=== PATIENT | male | born 1955 | race Caucasian/White ===

== ENCOUNTER → 2016-10-30 | Outpatient (CLI) | payer BC | END | disposition home or self-care (01) | LOC: GMAJ 10:15 | PROVIDERS: ATTEND Family Medicine | DX: R06.02 Shortness of breath (principal); Z12.5 Encounter for screening for malignant neoplasm of prostate ==

== ENCOUNTER 2017-09-03 04:55 | Emergency (ER) | payer BC ==
[2017-09-03] MEDS ORDERED: NITROGLYCERIN 0.4 MG 25 EA TAB SL ONE (05:22)
[2017-09-03] MEDS ORDERED: ALUM & MAG HYDROX-SIMETHICONE 30 ML, LIDOCAINE VISCOUS 2% 15 ML PO ONE ×2 (05:32)
[2017-09-03] MEDS ORDERED: ASPIRIN TABLET 325 MG TAB PO ONE (05:32)
[2017-09-03] MEDS ORDERED: LIDOCAINE HCL 2% (MOUTH-THROAT) 15 ML UD ONE (05:36)
[2017-09-03] MEDS ORDERED: ALUM & MAG HYDROX-SIMETHICONE 30 ML UD ONE (05:37)
--- NOTE | 2017-09-03 05:43 | ED.PDOC ---
History of Present Illness - General Chief Complaint: Chest Pain/IA Stated Complaint: chest pain Time Seen by Provider: 09/03/17 05:18 Source: patient Exam Limitations: no limitations - History of Present Illness Initial Comments: The patient is a 62-year-old male presenting to the emergency room secondary to chest pain that has been substernal and intermittent over the last month. Pain has been associated with numbness in the left shoulder. He had an episode last night that lasted for approximately 20 minutes until he took his nitroglycerin after which it resolved. Chest pain resumed around 3 AM this morning when he had an episode of vomiting. Chest pain has been fairly persistent since that time. At its worst it rates around 7 and it is currently around 3 on the pain scale. He has had nausea with some of the other episodes. He does take medications that are quite irritating to the intestinal tract such as metformin, brillinta and Celebrex. 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 He has had a few cardiac stents placed a couple of years ago. He reports being compliant with his medications. There is nothing that he can do to make the chest pain, on or go away except for the nitroglycerin. He took 3 nitroglycerin before coming up. The chest pain did not go away but did get a little bit better. He did not pass out. No feelings of palpitations. Mild shortness of breath with the episodes. Most of the episodes have occurred at night. He has had 5 or 6 episodes in the last month but all until this point have responded to nitroglycerin. Timing/Duration: 1-3 hours Severity: moderate Improving Factors: nothing Worsening Factors: nothing Associated Symptoms: chest pain, diaphoresis, malaise, nausea/vomiting Allergies/Adverse Reactions: Allergies Penicillins Allergy (Verified 08/26/15 08:56) Rash Home Medications: Ambulatory Orders Aspirin [Aspirin EC] 81 mg PO DAILY 08/26/15 Metformin HCl [Metformin HCl ER] 500 mg PO DAILY 08/26/15 Nitroglycerin [Nitrostat] 0.4 mg SL Q5MIN PRN 08/26/15 Ticagrelor [Brilinta] 90 mg PO DAILY 08/26/15 Atorvastatin Calcium [Lipitor] 20 mg PO 09/03/17 Metoprolol Succinate [Metoprolol Succinate ER] 50 mg PO 09/03/17 Review of Systems - Review of Systems Constitutional: States: malaise EENTM: States: no symptoms reported Respiratory: States: short of breath - mild, but only associated with the chest pain not with any exertion or position. Cardiology: States: chest pain. Denies: edema, palpitations, syncope Gastrointestinal/Abdominal: States: nausea, vomiting. Denies: constipation, diarrhea Genitourinary: States: no symptoms reported Musculoskeletal: States: no symptoms reported Skin: States: no symptoms reported Neurological: States: anxiety Endocrine: States: no symptoms reported All other Systems: No Change from Baseline Past Medical History (General) - Patient Medical History Hx Cardiac Disorders: Yes - Cardiac stents, [place] [facility] Cholesterol Hx Hypertension: Yes Hx Diabetes: Yes Surgical History: cholecystectomy - Vaccination History Hx Influenza Vaccination: No Hx Pneumococcal Vaccination: Yes - Social History Hx Tobacco Use: No Hx Alcohol Use: No - Triage Comment ED Triage Comment: onset of chest pain, last night around 9pm. Rates pain at 3 presently. Family Medical History - Family History Mother Living Status: Physical Exam - Physical Exam General Appearance: Alert, Anxious, No apparent distress Eye Exam: bilateral normal Ears, Nose, Throat: hearing grossly normal, normal ENT inspection, normal pharynx Neck: non-tender, full range of motion, supple Respiratory: chest non-tender, lungs clear, normal breath sounds, no respiratory distress, no accessory muscle use Cardiovascular/Chest: normal peripheral pulses, regular rate, rhythm, no edema Peripheral Pulses: radial,right: 2+, radial,left: 2+, dorsalis pedis,right: 2+, dorsalis pedis,left: 2+ Gastrointestinal/Abdominal: non tender - e does have an umbilical hernia that is not incarcerated. No pain. He does have mild epigastric discomfort palpation., soft Rectal Exam: deferred Back Exam: normal inspection, no CVA tenderness Extremity: normal range of motion, non-tender, normal inspection, no pedal edema , normal capillary refill Neurologic: money examiner II-XII nml as tested, alert, normal mood/affect - he is appropriately anxious, oriented x 3 Skin Exam: normal color Comments: Vital Signs - 24 hr 09/03/17 09/03/17 09/03/17 05:02 05:07 05:23 Pulse Rate [ 60 64 58 L Apical] Respiratory 16 18 Rate Blood Pressure 152/81 132/75 [Left Arm] O2 Sat by Pulse 98 99 Oximetry Progress - Progress Progress: 09/03/17 06:29 the patient is a 62-year-old male presenting to the emergency room with fairly convincing chest pain of a couple of hours duration that failed to resolve with 3 nitroglycerin. He has been having an increasing frequency of chest pain over the last month but all have resolved with nitroglycerin. He does have a history of significant stents placed approximately 2 years ago in [place]. [facility] is on divert. The patient is going to be transferred to [facility] and Dr. Angelo has been contacted. The patient is going to be placed on IV nitroglycerin, IV heparin. He has already received aspirin and a dose of morphine. GI cocktail failed to make any improvement whatsoever. He will be made nothing by mouth. Initial EKG does have some abnormalities but they may be long-term. Lab work otherwise at this time is reassuring. the patient does need a dose of his morning Brillinta upon arrival at the receiving facility. This medication is not on our formulary and Dr. Angelo did wish for him to have a dose this morning. 09/03/17 06:31 - Results/Orders Results/Orders: EKG shows normal sinus rhythm. There is poor R-wave progression in anterior leads. Normal axis. T-wave inversion in lead 3. Otherwise no significant ST segment changes concerning for imminent ischemia. chest x-ray shows no acute cardiopulmonary pathology. Laboratory Tests 09/03/17 05:05 WBC 10.5 RBC 4.69 L Hgb 14.3 Hct 43.3 MCV 92.3 MCH 30.4 MCHC 33.1 RDW 14.1 Plt Count 209 MPV 8.3 Absolute Neuts (auto) 6.00 Absolute Lymphs (auto) 2.90 Absolute Monos (auto) 1.30 H Absolute Eos (auto) 0.30 Absolute Basos (auto) 0.10 Neutrophils % 56.7 Lymphocytes % 27.2 Monocytes % 12.3 H Eosinophils % 3.3 Basophils % 0.5 PT 11.1 INR 0.980 PTT (SP) 30.9 Sodium 138 Potassium 4.2 Chloride 106 Carbon Dioxide 25 Anion Gap 11.2 L BUN 25 H Creatinine 1.39 H BUN/Creatinine Ratio 18.0 Random Glucose 142 H Serum Osmolality 282.5 Calcium 9.1 Magnesium 1.7 L Creatine Kinase 53 CK-MB (CK-2) 1.4 CK-MB (CK-2) % Not Reportable Troponin I 0.04 Departure - Departure Clinical Impression: Unstable angina Disposition: Transfer to Hospital Referrals: Stevie Garcia MD [Primary Care Provider] - 1-2 Weeks Home Medications: Ambulatory Orders Aspirin [Aspirin EC] 81 mg PO DAILY 08/26/15 Metformin HCl [Metformin HCl ER] 500 mg PO DAILY 08/26/15 Nitroglycerin [Nitrostat] 0.4 mg SL Q5MIN PRN 08/26/15 Ticagrelor [Brilinta] 90 mg PO DAILY 08/26/15 Atorvastatin Calcium [Lipitor] 20 mg PO 09/03/17 Metoprolol Succinate [Metoprolol Succinate ER] 50 mg PO 09/03/17 Transfer to Outside Facility - Transfer Information Accepting Provider:: dr rausch/janis [facility] Reason for Transfer: required specialist not available
--- NOTE | 2017-09-03 05:44 | RAD ---
EXAM: Single view chest. INDICATION: Chest pain. COMPARISON: Chest x-ray: 08/10/2010. FINDINGS: Cardiac silhouette: Unremarkable. Brooke: Unremarkable. Lobar consolidation: None. Pleural effusion: None. Pneumothorax: None. Other: None. Bones: There are postsurgical changes to the left clavicle Other: None. IMPRESSION: 1. No acute cardiopulmonary process. Electronically signed by: Chicho Villalpando MD 09/03/2017 5:42 AM [facility] Workstation: [id number]
[2017-09-03] MEDS ORDERED: MAGNESIUM SULFATE PREMIX 2GM 2 GM in PREMIX BAG 1 BAG IVPB ONE (05:47)
[2017-09-03] MEDS ORDERED: PANTOPRAZOLE SODIUM IV 40 MG VIAL IV ONE (05:47)
[2017-09-03] MEDS ORDERED: SODIUM CHLORIDE 0.9% 1000ML 500 ML IVS ONE (05:47)
[2017-09-03] MEDS ORDERED: MAGNESIUM SULFATE PREMIX 2GM 50 ML IVPB ONE (05:53)
[2017-09-03] MEDS ORDERED: NITROGLYCERIN 2% 1 GM UD TOP ONE (06:06)
[2017-09-03] MEDS ORDERED: MORPHINE SULFATE INJ 10 MG/ML VIAL IV ONE (06:09)
[2017-09-03] MEDS ORDERED: HEPARIN SODIUM (PORCINE) 5,000 U/ML VIAL IV ONE (06:11)
[2017-09-03] MEDS ORDERED: HEPARIN PREMIX 25,000 UNITS in PREMIX BAG 1 BAG IVS SCH (06:15)
[2017-09-03] MEDS ORDERED: NITROGLYCERIN/D5W IV 50,000 MCG in PREMIX BOTTLE 1 BOTTLE IVS SCH (06:30)
[2017-09-03] MEDS ORDERED: HEPARIN PREMIX 500 ML ONE (06:42)
[2017-09-03] MEDS ORDERED: NITROGLYCERIN/D5W IV 250 ML IVS ONE (06:43)
[2017-09-03 07:02] VITALS: BP 138/77; TEMP 98.5; O2SAT 95
== END 2017-09-03 07:19 | disposition short-term general hospital (02) ==
LOC: ER 04:55
DX: I20.0 Unstable angina (principal); I10 Essential (primary) hypertension; I25.2 Old myocardial infarction; E11.9 Type 2 diabetes mellitus without complications; E78.00 Pure hypercholesterolemia, unspecified; Z98.61 Coronary angioplasty status; Z88.0 Allergy status to penicillin; Z79.82 Long term (current) use of aspirin
CPT/HCPCS: 36415; 71045; 80048; 82550; 82553; 84484; 85025; 85610; 85730; 93005; J1644; J2270; J3475; J7030

== ENCOUNTER 2018-01-01 10:36 | Inpatient (IN) | payer BC ==
--- NOTE | 2018-01-01 11:18 | CT ---
Study: CT abdomen and pelvis. Indication: pain Technique: CT of the abdomen and pelvis obtained without intravenous contrast. This exam was performed according to our departmental dose-optimization program, which includes automated exposure control, adjustment of the mA and/or kV according to patient size and/or use of iterative reconstruction technique. Comparison: None. Findings: Lung bases clear. Coronary artery and abdominal aortic atherosclerosis. Cholecystectomy clips. Liver, spleen, adrenal glands, bladder, and prostate gland demonstrate a normal unenhanced CT appearance. Multiple coarse calcifications within the pancreas indicating chronic pancreatitis. Moderate right renal atrophy and cortical scarring with a 5.5 mm linear central nonobstructing right renal calculus. Within the proximal left ureter at the L3 vertebral body level there is an obstructing 3.5 mm stone moderate left hydronephrosis, renal enlargement, and perinephric stranding. Colonic diverticulosis without diverticulitis. Prominent umbilical hernia with a fascial defect measuring 6 cm transverse by 5 cm craniocaudal. There is herniated omentum as well as portions of the transverse colon and small bowel. No obstruction. Appendix not visualized. Tiny hiatal hernia. No free fluid. No free air. No pathologically enlarged lymphadenopathy. No acute osseous abnormality. Impression: Obstructing 3.5 mm stone within the proximal left ureter with moderate left hydronephrosis. Anterior abdominal wall hernia with herniated small bowel and transverse colon. No obstruction. Additional findings as above. Electronically signed by: Shad Hyatt MD 01/01/2018 11:16 AM CDT
[2018-01-01] MEDS ORDERED: ONDANSETRON INJ 4 MG/2 ML VIAL IV ONE (11:26)
[2018-01-01] MEDS ORDERED: MORPHINE SULFATE INJ 10 MG/ML VIAL IV ONE (11:26)
[2018-01-01] MEDS ORDERED: SODIUM CHLORIDE 0.9% 1000ML 1,000 ML IVS ONE ×2 (11:26→13:09)
--- NOTE | 2018-01-01 11:28 | ED.PDOC ---
History of Present Illness - General Chief Complaint: Problem Stated Complaint: lumbar back pain Time Seen by Provider: 01/01/18 11:01 Source: patient Exam Limitations: no limitations - History of Present Illness Initial Comments: H/O KIDNEY STONES. YESTERDAY, ENSUED WITH LBP, EMESIS, NAUSEA. FEELS SIMILAR TO KIDNEY STONE 1 YR AGO. DENIES URINARY SX OTHER THAN MILD DYSURIA. Timing/Duration: constant Severity: severe Improving Factors: nothing Worsening Factors: nothing Associated Symptoms: denies symptoms Allergies/Adverse Reactions: Allergies Penicillins Allergy (Verified 01/01/18 10:49) Rash Home Medications: Ambulatory Orders Aspirin [Aspirin EC] 81 mg PO DAILY 08/26/15 Metformin HCl [Metformin HCl ER] 500 mg PO DAILY 08/26/15 Nitroglycerin [Nitrostat] 0.4 mg SL Q5MIN PRN 08/26/15 Ticagrelor [Brilinta] 90 mg PO DAILY 08/26/15 Atorvastatin Calcium [Lipitor] 20 mg PO 09/03/17 Metoprolol Succinate [Metoprolol Succinate ER] 50 mg PO 09/03/17 Review of Systems - Review of Systems Constitutional: Denies: chills, fever EENTM: States: no symptoms reported Respiratory: States: no symptoms reported Cardiology: States: no symptoms reported Gastrointestinal/Abdominal: States: nausea. Denies: abdominal pain, vomiting Genitourinary: States: dysuria - mild. Denies: frequency, hematuria Musculoskeletal: States: back pain. Denies: muscle pain Skin: States: no symptoms reported Neurological: States: no symptoms reported Endocrine: States: no symptoms reported Hematologic/Lymphatic: States: no symptoms reported All other Systems: Reviewed and Negative Past Medical History (General) - Patient Medical History Hx Cardiac Disorders: Yes - Cardiac stents, [place] [facility] Cholesterol Hx Hypertension: Yes Hx Diabetes: Yes Surgical History: cholecystectomy, other - Vaccination History Hx Influenza Vaccination: No Hx Pneumococcal Vaccination: Yes - Social History Hx Tobacco Use: No Hx Alcohol Use: Yes - occasional Hx Substance Use: No Family Medical History - Family History Mother Living Status: Physical Exam - Physical Exam General Appearance: Alert, Well Nourished Ears, Nose, Throat: hearing grossly normal, normal ENT inspection Neck: full range of motion, normal inspection Respiratory: lungs clear, normal breath sounds, no respiratory distress Cardiovascular/Chest: regular rate, rhythm, no murmur Peripheral Pulses: radial,right: 1+, radial,left: 1+ Gastrointestinal/Abdominal: normal bowel sounds, non tender, soft Back Exam: normal inspection, no CVA tenderness Extremity: normal range of motion, normal inspection Neurologic: alert, normal mood/affect Skin Exam: normal color, warm/dry Lymphatic: no adenopathy Progress - Progress Progress: 01/01/18 13:45 R OBSTRUCTING NEPHROLITHIASIS 3.5 MM, WBC 13.5, ARF (CR 2.7, WAS 1.39 4 MOS AGO) . GAVE BOLUS X 2, ZOFRAN, MORPHINE, THEN DILAUDID. ROCEPHIN FOR UTI (PT NOT ALLERGIC TO ROCEPHIN). FLOMAX X 1. I SPOKE WITH SHREYAS, HOSPITALIST TECHNOLOGY LEAD. HE RECOMMENDED I INQUIRE WITH UROLOGY TO ENSURE IT IS NOT ONE THEY WOULD STENT. I SPOKE WITH DR. MADDOX, URO WHOM PT HAD SEEN 1 YR AGO. HE STATED NO NEED FOR TRANSFER THIS IS NOT NEEDING A STENT. HE STATED PAST STONE WAS URIC ACID AND RECOMMENDS PT TAKE POTASSIUM CITRATE OTC SUPPLEMENT. I PASSED ON THIS INFORMATION TO THE PT. PT NEEDING OBS ADMISSION SINCE HE IS REQUIRING IV PAIN MEDICATION TO CONTROL HIS PAIN. HE ALSO HAS ARF NEEDING IV FLUID MANAGEMENT AND ABX FOR UTI. THANK YOU, SHREYAS AND [facility], FOR ACCEPTING FURTHER CARE OF THIS PATIENT! Departure - Departure Clinical Impression: Urinary tract infection, Left nephrolithiasis, Hydronephrosis of left kidney, Neutrophilic leukocytosis, Microscopic hematuria, Bacteriuria, Acute renal failure Disposition: Admit Patient Condition: Fair Diet: resume usual diet Activity: increase activity as tolerated Home Medications: Ambulatory Orders Aspirin [Aspirin EC] 81 mg PO DAILY 08/26/15 Metformin HCl [Metformin HCl ER] 500 mg PO DAILY 08/26/15 Nitroglycerin [Nitrostat] 0.4 mg SL Q5MIN PRN 08/26/15 Ticagrelor [Brilinta] 90 mg PO DAILY 08/26/15 Atorvastatin Calcium [Lipitor] 20 mg PO 09/03/17 Metoprolol Succinate [Metoprolol Succinate ER] 50 mg PO 09/03/17 Additional Instructions: Please start taking a daily potassium citrate supplement. You had uric acid stones in the past and this can help prevent future formation of the stones. You will find this in the vitamin section of a grocery or supplement store. Decision To Admit - Decistion To Admit Decision to Admit Reason: Admit from ER Decision to Admit Date: 01/01/18 Decision to Admit Time: 13:55
[2018-01-01] MEDS ORDERED: cefTRIAXone SODIUM 1 GM in SODIUM CHL 0.9% 50ML MIN-BAG+ 50 ML IVPB ONE (11:57)
[2018-01-01] MEDS ORDERED: SODIUM CHL 0.9% 50ML MIN-BAG+ 50 ML IVPB ONE ×2 (12:00→19:04)
[2018-01-01] MEDS ORDERED: cefTRIAXone SODIUM 1 GM VIAL ONE ×2 (12:00→19:04)
[2018-01-01] MEDS ORDERED: HYDROmorphone HCL INJ 2 MG/ML VIAL IV ONE (12:33)
[2018-01-01] MEDS ORDERED: TAMSULOSIN 0.4 MG CAP PO ONE (13:39)
--- NOTE | 2018-01-01 14:04 | HP ---
SUPERVISING PHYSICIAN: Stevie Garcia MD CHIEF COMPLAINT: Left sided lumbar back pain. HISTORY OF PRESENT ILLNESS: This is a 62-year-old male patient who came into the Emergency Room with some lower back pain, mainly on the left side which he suspected was a kidney stone as he has had several of these in the past. This was associated with nausea and vomiting. He had some very minimal dysuria, but no difficulty urinating. When he came into the Emergency Room, his workup included labs as well as CT of the abdomen and pelvis. His CT revealed a left sided 3.5 mm proximal ureteral stone which was causing an obstruction with a resulting moderate hydronephrosis. He had some leukocytosis of 13,000 and elevated creatinine of 2.7. I was called by the Emergency Room physician for admission. I did ask for them to call the patient's urologist, Dr. Rivera, who he has seen in the past to ensure that he did not want to perform any intervention. He stated the patient would not need any intervention and that he could go home and take potassium citrate and let the stone pass. However, the patient's pain was uncontrolled and he was requiring IV pain medication, so he was referred for observation. I have now placed the patient in the Medical/ Surgical Unit for observation. At time of examination, the patient is more comfortable than what was described over the phone, however, he has gotten Dilaudid. He states he feels like the pain is coming back. He got a dose of Rocephin in the Emergency Room and cultures have been sent as well. PAST MEDICAL HISTORY: 1. Coronary artery disease with myocardial infarction in the past. He has had three stents, the last one in August of this year. 2. Hypertension. 3. Hyperlipidemia. 4. Diabetes mellitus, type 2. 5. History of kidney stones in the past. 6. History of anterior abdominal wall hernia. PAST SURGICAL HISTORY: 1. Cholecystectomy. 2. PTCA with stents times 3, most recently in 2018. 3. Left clavicle repair. CURRENT MEDICATIONS: 1. Aspirin 81 mg p.o. daily. 2. Atorvastatin 40 mg p.o. daily. 3. Metformin 500 mg p.o. b.i.d. 4. Metoprolol 25 mg p.o. daily. 5. Nitroglycerin 0.4 mg sublingual q.5 minutes p.r.n. for chest pain. 6. Brilinta 90 mg p.o. b.i.d. ALLERGIES: PENICILLIN. FAMILY HISTORY: Father had type 2 diabetes. Mother had asthma and hypertension. SOCIAL HISTORY: The patient is a previous smoker, quit around 2003. He smoked pretty heavily up until that point. He also is exposed to secondhand smoke from his . He is a nondrinker and no illicit drugs. REVIEW OF SYSTEMS: CONSTITUTIONAL: No fever or chills. No recent weight loss or weight gain. HEENT: No headaches, vision changes, ear pain, throat pain. RESPIRATORY: No cough, hemoptysis or pleuritic chest pain. CARDIOVASCULAR: No chest pain, palpitations or peripheral edema. GASTROINTESTINAL: Positive for nausea and vomiting. No diarrhea, constipation or abdominal pain. GENITOURINARY: Positive for left flank pain and some mild dysuria. HEMATOLOGIC: Positive for easy bruising but no transfusion reactions. MUSCULOSKELETAL: No back pain, muscle cramps, joint pain. ENDOCRINE: No polydipsia, polyuria, polyphagia. No heat or cold intolerance. NEUROLOGIC: No syncope, paresthesias, seizures. PHYSICAL EXAMINATION: VITAL SIGNS: Blood pressure 148/88. Heart rate 68. Respiratory rate 20. Temperature 98.1. Oxygen saturation 96%. GENERAL: Mr. Lowe is a 62-year-old male patient in no active distress currently. HEENT: Normocephalic, atraumatic. Pupils are equal and reactive. No nasal drainage. Throat with moist mucosa. NECK: Supple. Midline trachea. No jugular venous distention. CHEST: Symmetrical with equal rise and fall of the chest with inspiration and expiration. Lung sounds are clear to auscultation bilaterally. CARDIOVASCULAR: Regular rate and rhythm. Normal S1, S2. ABDOMEN: Soft, obese. Positive bowel sounds. He does have a noted lower abdominal anterior likely umbilical hernia noted. GENITOURINARY: Deferred. EXTREMITIES: Lower extremities with trace ankle edema. Pulses 2+. Capillary refill is less than 2 seconds. NEUROLOGIC: The patient is alert and oriented. Moves all extremities. Extraocular movements are intact. LABORATORY: Labs and films have been reviewed. CT scan as above. White count 13,500, hemoglobin stable. BUN and creatinine are elevated at 35 and 2.71 respectively. Urinalysis has 5 to 10 WBCs, 2+ bacteria. I am not sure if they ordered a urine culture. ASSESSMENT: 1. Left proximal 3.5 mm obstructing kidney stone with moderate hydronephrosis. 2. Acute kidney injury secondary to #1. 3. Urinary tract infection secondary to #1. 4. History of hypertension, coronary artery disease and diabetes mellitus. 5. Chronic anterior abdominal hernia without current obstruction via CT scan. PLAN: At this point, I am going to give him some IV fluids and start him on some Flomax and provide pain control. I have also added Rocephin for antibiotics. If not already done, I will add blood cultures as well as urine cultures. At this point, urology does not feel like he needs any kind of intervention. I will continue to monitor him and if he worsens at all, we will transfer to [place], but at this point he can be managed here. I will resume his home medications as well and start him on sliding scale insulin for glucose control. #[id number] [facility]ENTERShellie
[2018-01-01] MEDS ORDERED: DEXTROSE 50% 25 GM/50 ML SYG IV PRN (14:41)
[2018-01-01] MEDS ORDERED: GLUCAGON INJ 1 MG VIAL SUBCU PRN (14:41)
[2018-01-01] MEDS ORDERED: SODIUM CHLORIDE 0.9% (FLUSH) 10 ML SYG IV PRN (14:41)
[2018-01-01] MEDS ORDERED: NITROGLYCERIN 0.4 MG 25 EA TAB SL PRN (14:50)
[2018-01-01] MEDS: SODIUM CHLORIDE 0.9% 1000ML 1,000 ML IVS PRN ×2 (14:54→22:38)
[2018-01-01] MEDS ORDERED: IV SET AND CAP CHANGE INJ INJ SCH (15:00)
[2018-01-01] MEDS: TAMSULOSIN 0.4 MG CAP PO SCH (15:03)
[2018-01-01] MEDS: INSULIN LISPRO 100 UNITS/ML PEN SUBCU SCH ×2 (16:29→20:50)
[2018-01-01] MEDS: HYDROmorphone HCL INJ 2 MG/ML VIAL IV PRN (18:32)
[2018-01-01] MEDS: NON-FORMULARY MEDICATION 1 EA MIS (Ticagrelor [Brilinta] 90 MG) PO SCH (20:47)
[2018-01-01] MEDS: metFORMIN XR 500 MG TAB.ER.24 PO SCH (20:47)
[2018-01-01] MEDS: cefTRIAXone SODIUM 1 GM in SODIUM CHL 0.9% 50ML MIN-BAG+ 50 ML IVPB SCH (23:04)
[2018-01-02] MEDS: HYDROmorphone HCL INJ 2 MG/ML VIAL IV PRN ×7 (02:57→23:46)
[2018-01-02] MEDS ORDERED: HYDROmorphone HCL INJ 2 MG/ML VIAL IV ONE (05:05)
[2018-01-02] MEDS: SODIUM CHLORIDE 0.9% 1000ML 1,000 ML IVS PRN ×3 (06:11→23:52)
[2018-01-02] MEDS ORDERED: SODIUM CHL 0.9% 50ML MIN-BAG+ 50 ML IVPB ONE ×2 (06:53→18:56)
[2018-01-02] MEDS ORDERED: ASPIRIN EC 81 MG TAB PO ONE (06:53)
[2018-01-02] MEDS ORDERED: METOPROLOL SUCCINATE XL 25 MG TAB PO ONE (06:53)
[2018-01-02] MEDS ORDERED: cefTRIAXone SODIUM 1 GM VIAL ONE ×2 (06:54→18:56)
[2018-01-02] MEDS: INSULIN LISPRO 100 UNITS/ML PEN SUBCU SCH ×4 (06:58→20:47)
[2018-01-02] MEDS: metFORMIN XR 500 MG TAB.ER.24 PO SCH ×2 (07:31→16:30)
[2018-01-02] MEDS: TAMSULOSIN 0.4 MG CAP PO SCH (08:33)
[2018-01-02] MEDS: cefTRIAXone SODIUM 1 GM in SODIUM CHL 0.9% 50ML MIN-BAG+ 50 ML IVPB SCH ×2 (08:33→20:40)
[2018-01-02] MEDS: ASPIRIN EC 81 MG TAB PO SCH (08:33)
[2018-01-02] MEDS: METOPROLOL SUCCINATE XL 50 MG TAB PO SCH (08:35)
[2018-01-02] MEDS: NON-FORMULARY MEDICATION 1 EA MIS (Ticagrelor [Brilinta] 90 MG) PO SCH ×2 (08:35→20:44)
[2018-01-02] MEDS: ALLOPURINOL 100 MG TAB PO SCH (08:38)
[2018-01-02] MEDS ORDERED: ALLOPURINOL 300 MG TAB PO SCH (09:00)
[2018-01-02] MEDS ORDERED: levoFLOXacin 750MG IV 750 MG in PREMIX BAG 1 BAG IVPB SCH (11:00)
--- NOTE | 2018-01-02 11:00 | PN ---
SUPERVISING PHYSICIAN: Stevie Garcia MD DATE: 01/02/18 SUBJECTIVE: The patient states he feels a little bit better than he did yesterday, but around 3 o'clock in the morning, he did have an acute attack which was pretty painful and required additional pain medication. However, as stated before, he does state he feels a little bit better than he did yesterday. He denies fever, however, the nurse states he did have a fever overnight. OBJECTIVE: VITAL SIGNS: Blood pressure 137/56. Heart rate 90. Respiratory rate 20. Temperature currently 98.3, but it got as high at 100.0. O2 saturation 92% on room air. GENERAL: Mr. Lowe is a 62-year-old male patient in no active distress currently. NEUROLOGIC: Alert and oriented. LUNGS: Clear to auscultation bilaterally. CARDIOVASCULAR: Regular rate and rhythm. Normal S1, S2. ABDOMEN: Soft, obese. Positive bowel sounds. No tenderness to palpation. Mild left CVA tenderness. GENITOURINARY: Deferred. EXTREMITIES: Lower extremities with no significant edema. Pulses 2+. Capillary refill is less than 2 seconds. LABORATORY: White count 13.7, hemoglobin 12.6, hematocrit 38.1, platelet count 161. Sodium 136, potassium 4.5, chloride 108, CO2 21, BUN 37, creatinine 2.74, glucose 131, calcium 7.8. So far cultures are negative. ASSESSMENT: 1. Left proximal 3.5 mm obstructing kidney stone with moderate hydronephrosis. 2. Acute kidney injury secondary to #1. 3. Urinary tract infection secondary to #1. 4. History of hypertension, controlled currently. 5. Coronary artery disease without any significant issues at this time. Continue Brilinta. 6. Diabetes mellitus on sliding scale. I am going to hold his metformin if we have not already due to the renal function. 7. Chronic anterior abdominal hernia without current complication. PLAN: I will continue the Rocephin at this point and add Levaquin due to the fact that his white count has not really improved. He still has pretty much a low grade fever. If his numbers do not significantly improve over the next 24 hours, I would probably call Dr. Rivera back and tell him what is going on and see if he wants to change his mind about potentially seeing the patient and doing an intervention. It looks like on previous admission back in [place], he did have an elevated creatinine, but it was only 1.39, so he probably has a little bit of chronic renal insufficiency, but still this is higher than his normal. #[id number] [facility]ENTERShellie
[2018-01-02] MEDS ORDERED: ATORVASTATIN 20 MG TAB PO ONE (18:56)
[2018-01-02] MEDS ORDERED: ATORVASTATIN 20 MG TAB PO SCH (21:00)
[2018-01-03] MEDS: HYDROmorphone HCL INJ 2 MG/ML VIAL IV PRN ×3 (04:20→10:05)
[2018-01-03] MEDS ORDERED: SODIUM CHL 0.9% 50ML MIN-BAG+ 50 ML IVPB ONE (08:00)
[2018-01-03] MEDS ORDERED: cefTRIAXone SODIUM 1 GM VIAL ONE (08:01)
[2018-01-03 08:23] VITALS: O2SAT 94
[2018-01-03] MEDS: SODIUM CHLORIDE 0.9% 1000ML 1,000 ML IVS PRN (08:25)
[2018-01-03] MEDS: ALLOPURINOL 100 MG TAB PO SCH (08:28)
[2018-01-03] MEDS: ASPIRIN EC 81 MG TAB PO SCH (08:28)
[2018-01-03] MEDS: cefTRIAXone SODIUM 1 GM in SODIUM CHL 0.9% 50ML MIN-BAG+ 50 ML IVPB SCH (08:28)
[2018-01-03] MEDS: TAMSULOSIN 0.4 MG CAP PO SCH (08:29)
[2018-01-03] MEDS: METOPROLOL SUCCINATE XL 50 MG TAB PO SCH (08:29)
[2018-01-03] MEDS: INSULIN LISPRO 100 UNITS/ML PEN SUBCU SCH (08:30)
[2018-01-03] MEDS: NON-FORMULARY MEDICATION 1 EA MIS (Ticagrelor [Brilinta] 90 MG) PO SCH (08:31)
[2018-01-03] MEDS ORDERED: MAGNESIUM SULFATE PREMIX 2GM 2 GM in PREMIX BAG 1 BAG IVPB ONE (08:34)
[2018-01-03] MEDS ORDERED: MAGNESIUM SULFATE PREMIX 2GM 50 ML IVPB ONE (09:09)
--- NOTE | 2018-01-03 09:51 | DS ---
SUPERVISING PHYSICIAN: Stevie Garcia MD DISCHARGE DIAGNOSIS: 1. Left proximal 3.5 mm obstructing kidney stone with moderate hydronephrosis. 2. Acute kidney injury secondary to #1, worsening. 3. Urinary tract infection secondary to #1. 4. History of hypertension, controlled currently. 5. Coronary artery disease without any significant issues at this time. Continue Brilinta. 6. Diabetes mellitus on sliding scale. Metformin is being held at this time due to his CT as well as his renal function. 7. Chronic anterior abdominal hernia without current complication. HISTORY OF PRESENT ILLNESS: This is a 63-year-old male patient who came into the Emergency Room with some left lower back pain with suspected kidney stone as he has had several in the past. This was associated with nausea and vomiting and low grade temperature. He had some dysuria, but no difficulty urinating. He had labs as well as CT of the abdomen and pelvis in the Emergency Room. His CT revealed a left sided 3.5 mm proximal ureteral stone which was causing an obstruction with a resulting moderate hydronephrosis. He had some leukocytosis of 13,000 and elevated creatinine of 2.7. The patient's urologist, Dr. Rivera, was called about the the patient's status and he felt there was no intervention other than he needed to go home and take potassium citrate, hydration and let the stone pass. However, the patient's pain was uncontrolled and he was requiring IV pain medication, so he was initially referred for observation. He was started on Rocephin and fluids in the Emergency Room. Shortly thereafter, he was placed as a full admission due to his worsening renal function, requirement of IV pain medications as well as several IV antibiotics. His condition has not improved. He has not passed the kidney stone. He is getting IV pain medications about every 3 to 4 hours. He continues to have left sided flank pain. I called [facility] for transfer due to the worsening condition of the patient. Dr. Doty , hospitalist at [facility], has accepted the patient in transfer. DISCHARGE PLAN: The patient will be discharged [facility] in [place]. Dr. Doty is the accepting hospitalist. We will send lab results as well as any radiology reports and discs with the patient. I have continued his antibiotics which are Levaquin and Rocephin as well as his pain medications, Dilaudid. His metformin has been discontinued. After discharge, he is to followup with his primary care physician, Dr. Stevie Garcia. DISCHARGE MEDICATIONS: 1. Brilinta. 2. Aspirin. 3. Nitroglycerin. 4. Metoprolol. 5. Lipitor. 6. Rocephin. 7. Dilaudid. 8. Levaquin. 9. Flomax. Dr. Garcia is the collaborating physician and available for consultation. #[id number] [facility]
[2018-01-03 10:45] VITALS: BP 146/88; TEMP 99
== END 2018-01-03 10:12 | disposition short-term general hospital (02) | DRG 690 ==
LOC: ER 10:36 → MS 14:02 → OBSVTOIN 01-02 09:06
PROVIDERS: ADMIT Nurse Practitioner; ATTEND Nurse Practitioner Acute Care
DX: N13.6 Pyonephrosis (principal); N17.9 Acute kidney failure, unspecified; I25.10 Atherosclerotic heart disease of native coronary artery without angina pectoris; I25.2 Old myocardial infarction; E11.21 Type 2 diabetes mellitus with diabetic nephropathy; I12.9 Hypertensive chronic kidney disease with stage 1 through stage 4 chronic kidney disease, or unspecified chronic kidney disease; N18.9 Chronic kidney disease, unspecified; K43.9 Ventral hernia without obstruction or gangrene; E78.5 Hyperlipidemia, unspecified; E11.9 Type 2 diabetes mellitus without complications; E66.9 Obesity, unspecified; Z95.5 Presence of coronary angioplasty implant and graft; Z90.49 Acquired absence of other specified parts of digestive tract; Z79.82 Long term (current) use of aspirin; Z79.84 Long term (current) use of oral hypoglycemic drugs; Z79.899 Other long term (current) drug therapy; Z88.0 Allergy status to penicillin; Z87.891 Personal history of nicotine dependence

== ENCOUNTER → 2018-06-17 | Outpatient (CLI) | payer BC | LOC: GMAJ 10:52 | PROVIDERS: ATTEND Family Medicine | DX: M10.9 Gout, unspecified (principal); E55.9 Vitamin D deficiency, unspecified; Z12.5 Encounter for screening for malignant neoplasm of prostate ==

== ENCOUNTER → 2019-12-08 | Outpatient (CLI) | payer BC | LOC: GMAJ 11:26 | PROVIDERS: ATTEND Family Medicine | DX: M10.9 Gout, unspecified (principal); I10 Essential (primary) hypertension; E78.2 Mixed hyperlipidemia; E11.9 Type 2 diabetes mellitus without complications ==

== ENCOUNTER → 2020-05-21 | Outpatient (CLI) | payer BC | LOC: GMAJ 10:57 | PROVIDERS: ATTEND Family Medicine | DX: M10.00 Idiopathic gout, unspecified site (principal); Z12.5 Encounter for screening for malignant neoplasm of prostate; E11.9 Type 2 diabetes mellitus without complications; I10 Essential (primary) hypertension; E78.2 Mixed hyperlipidemia ==